=== PATIENT | female | born 1965 | race Two or more races ===

== ENCOUNTER 2020-02-15 07:28 | Outpatient (CLI) | payer OTHER | END 2020-02-15 07:37 | disposition home or self-care (01) | LOC: SONOGRAMA 07:28 | DX: R10.30 Lower abdominal pain, unspecified (principal); K30 Functional dyspepsia; R19.5 Other fecal abnormalities ==

== ENCOUNTER 2020-04-05 16:20 | Outpatient (CLI) | payer OTHER | END 2020-04-05 16:24 | disposition home or self-care (01) | LOC: LAB 16:20 | DX: Z20.828 Contact with and (suspected) exposure to other viral communicable diseases (principal) ==

== ENCOUNTER 2020-07-03 09:35 | Emergency (ER) | payer OTHER ==
[~2020-07-03] VITALS: Ht 160 cm; Wt 68.0 kg
[2020-07-03] MEDS ORDERED: NORFLEX100MG PO (13:16)
[2020-07-03] MEDS ORDERED: KETO10TA2 PO (13:16)
[2020-07-03] MEDS ORDERED: NEURONTIN300 MG PO (13:20)
[2020-07-04] MEDS ORDERED: NAPR500T14 PO (15:38)
== END 2020-07-03 14:06 | disposition home or self-care (01) ==
LOC: ER 09:35
DX: R10.31 Right lower quadrant pain (principal); M54.5 Low back pain; Z03.818 Encounter for observation for suspected exposure to other biological agents ruled out

== ENCOUNTER 2020-08-23 10:42 | Emergency (ER) | payer OTHER ==
[~2020-08-23] VITALS: Ht 157.5 cm; Wt 65.3 kg
[~2020-08-23 10:42] MED LIST: KETO10TA2 PO; NAPR500T14 PO; NEURONTIN300 MG PO; NORFLEX100MG PO
[2020-08-23] MEDS ORDERED: TRULICITY1.5 MG/0.5 SQ (10:53)
[2020-08-23] MEDS ORDERED: JARDIANCE25 MG PO (10:53)
[2020-08-23] MEDS ORDERED: ATORVASTATIN CA20 MG PO (10:54)
[2020-08-23] MEDS ORDERED: KETO10TA2 PO (15:38)
[2020-08-23] MEDS ORDERED: LOSARTAN POTASS25 MG PO (15:58)
== END 2020-08-23 16:53 | disposition home or self-care (01) ==
LOC: ER 10:42 → CPU-OBS 10:46 → ER 16:53
DX: I16.1 Hypertensive emergency (principal); I10 Essential (primary) hypertension; B34.9 Viral infection, unspecified; R00.2 Palpitations; R51.9 Headache, unspecified
CPT/HCPCS: G0378; G0379

== ENCOUNTER → 2020-10-31 | Outpatient (CLI) | payer OTHER ==
[~2020-10-31] MED LIST changes: +ATORVASTATIN CA20 MG PO; +JARDIANCE25 MG PO; +LOSARTAN POTASS25 MG PO; +TRULICITY1.5 MG/0.5 SQ
== END | disposition home or self-care (01) ==
LOC: MRI 12:39
DX: M51.36 Other intervertebral disc degeneration, lumbar region (principal); M47.896 Other spondylosis, lumbar region
CPT/HCPCS: 72148

== ENCOUNTER 2021-04-17 16:17 | Outpatient (CLI) | payer OTHER | END 2021-04-17 16:20 | disposition home or self-care (01) | LOC: LAB 16:17 | PROVIDERS: ATTEND Internal Medicine | DX: Z11.59 Encounter for screening for other viral diseases (principal); Z20.828 Contact with and (suspected) exposure to other viral communicable diseases ==

== ENCOUNTER 2021-04-29 07:49 | Outpatient (CLI) | payer OTHER | END 2021-04-29 07:51 | disposition home or self-care (01) | LOC: TOM 07:49 | PROVIDERS: ATTEND Internal Medicine Gastroenterology | DX: R10.13 Epigastric pain (principal) ==